=== PATIENT | female | born 1985 | race Caucasian/White ===

== ENCOUNTER → 2016-11-21 | Outpatient (CLI) | payer BC, OTHER | LOC: HYPER 11-20 11:26 | DX: L89.154 Pressure ulcer of sacral region, stage 4 (principal); L89.104 Pressure ulcer of unspecified part of back, stage 4 ==

== ENCOUNTER → 2017-01-21 | Outpatient (CLI) | payer BC, OTHER | LOC: HYPER 12-19 07:04 | DX: L89.152 Pressure ulcer of sacral region, stage 2 (principal); L89.104 Pressure ulcer of unspecified part of back, stage 4; L89.321 Pressure ulcer of left buttock, stage 1 ==

== ENCOUNTER → 2017-10-10 | Outpatient (CLI) | payer BC, OTHER | LOC: HYPER 06:43 | DX: R21 Rash and other nonspecific skin eruption (principal); P10 Intracranial laceration and hemorrhage due to birth injury; Q05.3 Sacral spina bifida with hydrocephalus ==